=== PATIENT | female | born 1965 | race Caucasian/White ===

== ENCOUNTER 2018-06-18 16:40 | Emergency (ER) | payer MEDICARE ==
[~2018-06-18] VITALS: Ht 170.2 cm; Wt 149.7 kg
[~2018-06-18 16:40] MED LIST: AMARYL4 MG PO; CARISOPRODOL 3350 MG PO; CYCLOBENZAPRINE10 MG PO; HYDROCODONE-APA1 TA1 PO; K-DUR10 MEQ PO; LASIX 40 MG TAB40 M1 GT; MOBIC15 MG PO; NORCO 5-325 TA1 EACH PO; NYSTATIN 1100000 U/M PO; PERCOCET 5-3251 EACH PO; PROVERA10 MG PO; ROBAXIN 750 MG750 M1 PO; VITAMINS
[2018-06-18 18:19] LABS: ABSOLUTE BASOPHILS 0.2 thou/uL (0.0-0.2); ABSOLUTE EOSINOPHILS 0.3 thou/uL (0.0-0.7); ABSOLUTE LYMPHOCYTES 4.3 thou/uL (0.8-5.3); ABSOLUTE MONOCYTES 1.3 thou/uL (0.0-1.2); ABSOLUTE NEUTROPHILS 10.7 thou/uL (1.6-8.1); BASOPHILS 0.9 %; EOSINOPHILS 1.8 %; HEMOGLOBIN 12.7 gm/dL (12.0-15.0); LYMPHOCYTES 25.8 %; MCH 29.3 pg (26.0-34.0); MCHC 33.5 g/dL (28.0-37.0); MCV 87.5 fL (80.0-100.0); MONOCYTES 7.6 %; MPV 9.4 fl. (7.2-11.1); NUCLEATED RBCS 0 /100WBC; PLATELET COUNT* 267 thou/uL (150-400); POLYS 63.9 %; RBC 4.34 mil/uL (4.20-5.00); WBC 16.8 thou/uL (4.0-11.0)
[2018-06-18 18:32] LABS: ANION GAP 11 mmol/L (7-16); BUN 20 mg/dL (7-18); CHLORIDE 103 mmol/L (98-107); CO2 27 mmol/L (21-32); CREATININE 1.3 mg/dL (0.6-1.3); GLUCOSE 150 mg/dL (70-99); POTASSIUM 4.2 mmol/L (3.5-5.1); SODIUM 141 mmol/L (136-145); TROPONIN-I LEVEL <0.06 ng/mL (<0.06)
[2018-06-18 18:40] LABS: URINE BLOOD 2+ (Negative); URINE CLARITY CLEAR; URINE COLOR YELLOW; URINE GLUCOSE-RANDOM 1+ (Negative); URINE KETONES TRACE (Negative); URINE LEUKOCYTES-REFLEX TRACE (Negative); URINE NITRITE-REFLEX NEGATIVE (Negative); URINE PROTEIN 2+ (Negative); URINE SPECIFIC GRAVITY >= 1.030 (1.005-1.030); URINE UROBILINOGEN 0.2 E.U./dl (0.2-1.0)
[2018-06-18 18:40] LABS: ALBUMIN 2.9 g/dL (3.4-5.0); ALKALINE PHOSPHATASE 79 U/L (46-116); LIPASE 41 U/L (73-393); NT-PRO BRAIN NAT PEPTIDE 773 pg/mL (<300); SGOT 12 U/L (15-37); SGPT 16 U/L (30-65); TOTAL BILIRUBIN 0.3 mg/dL (<0.1-1.0); TOTAL PROTEIN 6.6 g/dL (6.4-8.2)
[2018-06-18 18:41] LABS: ICTOTEST (BILI CONFIRMATORY) Negative (Negative); URINE BILIRUBIN 1+ (Negative)
[2018-06-18 18:45] LABS: BACTERIA-REFLEX >30 Many /HPF (None Seen); CASTS None Seen /LPF (None Seen); CRYSTALS None Seen /LPF (None Seen); SQUAMOUS 0-3 Few /LPF (0-3); URINE RBC None Seen /HPF (0-2); URINE WBC-REFLEX >25 Many /HPF (0-5)
[2018-06-18] MEDS ORDERED: BACTRIM DS TAB1 EACH PO (18:47)
[2018-06-18] MEDS ORDERED: NYSTATIN15 G3 TOP (18:47)
[2018-06-18 19:26] VITALS: BP 109/45
--- NOTE | 2018-06-19 12:31 | EKG ---
[place] [id number] ELECTROCARDIOGRAM REPORT Name: NIEVESJESSICA ANTONIO Room: [facility]#: [id number] Admission: 06/18/18 Attend Phys: Discharge: 06/18/18 Date of : 65 Report #: [id number] THIS REPORT FOR: //name// [facility] ED Test Date: 2018-06-18 Test Time: 16:54:32 Pat Name: JESSICA NIEVES Department: Room: Gender: F [employer] Specialist: SAMM : 1965 Requested By: Ez Castillo Order Number: [id number] MD: Alvaro Menjivar Measurements Intervals Ramer Rate: 99 P: 86 MI: 144 QRS: 65 QRSD: 90 T: 87 QT: 361 QTc: 464 Interpretive Statements Sinus rhythm Probable anterior infarct, old No previous ECG available for comparison Electronically Signed On 06-19-2018 12:30:53 CDT by Alvaro Menjivar [email or web address] <ELECTRONICALLY SIGNED> By: Alvaro Menjivar MD, [facility] 06/19/18 1230 1654 1654 Alvaro Menjivar MD, FACC /EPI
== END 2018-06-18 19:25 | disposition home or self-care (01) ==
LOC: M.ERS 16:40
PROVIDERS: Emergency Medicine
DX: N39.0 Urinary tract infection, site not specified (principal); R42 Dizziness and giddiness; G47.30 Sleep apnea, unspecified; E11.9 Type 2 diabetes mellitus without complications; F32.9 Major depressive disorder, single episode, unspecified; M48.00 Spinal stenosis, site unspecified; Z98.890 Other specified postprocedural states